=== PATIENT | male | born 1960 | race Caucasian/White ===

== ENCOUNTER 2020-12-14 19:06 | Emergency (ER) | payer BC ==
[~2020-12-14] VITALS: Ht 172.7 cm; Wt 86.4 kg
[2020-12-14 19:12] VITALS: TEMP 98.2
[2020-12-14 19:47] LABS: BASO % 0.2 % (0.0-2.0); EOS % 0.1 % (0-4.0); GRAN # 10.5 K/mm3 (1.4-6.5); GRAN % 85.2 % (42.2-75.2); HEMOGLOBIN 13.8 g/dl (13.5-18.0); LYMPH # 1.1 K/mm3 (1.2-3.4); LYMPH % 8.6 % (20.0-51.0); MEAN CELL VOLUME 95 fl (80.0-100.0); MEAN CORPUSCULAR HEMOGLOBIN 32 pg (27.0-31.0); MEAN CORPUSCULAR HGB CONC 34 g/dl (33.0-37.0); MEAN PLATELET VOLUME 9.6 fl (7.4-10.4); MONO # 0.7 K/mm3 (0.1-0.6); MONO % 5.5 % (1.7-9.3); PLATELET COUNT 236 K/mm3 (130-400); RED BLOOD COUNT 4.33 M/mm3 (4.20-5.60); REDCELL DISTRIBUTION WIDTH-CV 11.9 % (11.5-14.5)
[2020-12-14 20:02] LABS: ALBUMIN 4.4 gm/dL (3.4-4.8); BILIRUBIN,TOTAL 0.6 mg/dL (0.2-1.2); CALCIUM 9.5 mg/dL (8.4-10.2); CREATININE, serum 0.87 mg/dL (0.72-1.25); POTASSIUM 4.2 mmol/L (3.5-4.5); TOTAL PROTEIN 7.3 gm/dL (6.2-8.1)
[2020-12-14 20:11] LABS: TROPONIN-I 4.352 ng/mL (0.00-0.033)
[2020-12-14 20:25] VITALS: BP 112/69; PULSE 91
== END 2020-12-14 20:25 | disposition short-term general hospital (02) ==
LOC: COL.ER 19:06
PROVIDERS: Personal Emergency Response Attendant
DX: I21.9 Acute myocardial infarction, unspecified (principal)
CPT/HCPCS: J0461; J1644; J3101

== ENCOUNTER 2021-01-26 13:00 | Outpatient (RCR) | payer BC | END 2021-03-04 | disposition home or self-care (01) | LOC: COL.CR | DX: Z48.812 Encounter for surgical aftercare following surgery on the circulatory system (principal); I21.9 Acute myocardial infarction, unspecified; Z98.61 Coronary angioplasty status ==